=== PATIENT | female | born 2000 | race African-American/Black ===

== ENCOUNTER 2024-05-26 09:56 | Emergency (ER) | payer SELFPAY ==
[2024-05-26] MEDS ORDERED: Ibuprofen 200 MG TAB ONE (10:45)
== END 2024-05-26 11:25 | disposition home or self-care (01) ==
LOC: CSHERS 09:56
DX: J02.0 Streptococcal pharyngitis (principal)
CPT/HCPCS: 87428; 87430; 99283

== ENCOUNTER 2025-01-07 16:14 | Day surgery (SDC) | payer OTHER ==
[2025-01-07 16:28] VITALS: BMI 59.9
[2025-01-07] MEDS ORDERED: hydrALAZINE 20 MG/ML VIAL SLOW IVP PRN (16:36)
[2025-01-07 17:32] LABS: #Basophils Less than 0.03 10x3/uL (0.0-0.2); #Eosinophils 0.03 10x3/uL (0.0-0.5); #Monocytes 0.53 10x3/uL (0.0-1.1); #Neutrophils 3.96 10x3/uL (1.5-8.4); %Basophils 0.4 % (0.0-2.0); %Eosinophils 0.5 % (0.0-6.0); %Lymphocytes 20.0 % (18.0-47.0); %Monocytes 9.3 % (0.0-10.0); %Neutrophils 69.3 % (40.0-75.0); Hematocrit 32.6 % (34.9-44.5); Hemoglobin 10.5 g/dL (12.0-15.5); Mean Corpuscular Hemoglobin 26.1 pg (27.0-33.0); Mean Corpuscular Volume 80.9 fL (81.6-98.3); Platelet Count 332 10x3/uL (150-450); Red Blood Cell (RBC) Count 4.03 10x6/uL (3.90-5.03); White Blood Cell (WBC) Count 5.71 10x3/uL (3.5-10.5)
[2025-01-07 17:32] LABS: Glucose, Urine (Dipstick) Normal (Negative); Leukocyte Negative (Negative); Protein, Urine (Dipstick) 30 mg/dl (Neg-Trace); Specific Gravity, Urine 1.025 (1.005-1.030)
[2025-01-07] MEDS: Lidocaine 2% Viscous Solution 10 ML, Aluminum & Magnesium Hydroxide 30 ML SSW SCH (17:47)
[2025-01-07 17:49] LABS: ALT (SGPT) 12 U/L (Less than 34); AST (SGOT) 16 U/L (11-34); Albumin 3.0 g/dL (3.1-4.5); Alkaline Phosphatase 42 U/L (40-110); Anion Gap 12 mmol/L (10-20); BUN (Urea Nitrogen) 6 mg/dL (7.0-18.7); Bilirubin, Total 0.3 mg/dL (0.3-1.2); Calc. Creatinine Clearance 358 mL/min (70-130); Calcium 8.5 mg/dL (7.8-10.44); Carbon Dioxide 21 mmol/L (22-29); Chloride 107 mmol/L (98-107); Globulin 3.8 g/dL (2.4-3.5); Glucose 83 mg/dL (70-105); Lipase 12 U/L (8-78); Potassium 3.8 mmol/L (3.5-5.1); Sodium 136 mmol/L (136-145)
[2025-01-07 18:05] LABS: Bacteria/HPF 2+ HPF (None Seen); CAUTI Indications for Culture Pregnancy; RBC/HPF 0-3 HPF (0-3)
[2025-01-07 18:06] LABS: Mucous/LPF 3+ LPF (<2+)
[2025-01-07 18:08] LABS: Urine Culture Reflex Yes Yes
== END 2025-01-07 18:30 | disposition home or self-care (01) ==
LOC: CSHLD/OP 16:14
PROVIDERS: ATTEND Family Medicine
DX: O99.891 Other specified diseases and conditions complicating pregnancy (principal); R10.9 Unspecified abdominal pain; O21.2 Late vomiting of pregnancy; Z3A.22 22 weeks gestation of pregnancy
CPT/HCPCS: 36415; 80053; 81001; 83690; 85025; 87086

== ENCOUNTER 2025-04-25 18:09 | Inpatient (IN) | payer OTHER ==
[2025-04-25 18:20] VITALS: BMI 54.2
[2025-04-25 19:05] LABS: Fetal Membranes Rupture No Membranes Rupture (No Rupture)
[2025-04-25 20:29] LABS: #Basophils Less than 0.03 10x3/uL (0.0-0.2); #Eosinophils Less than 0.03 10x3/uL (0.0-0.5); #Monocytes 0.60 10x3/uL (0.0-1.1); #Neutrophils 3.38 10x3/uL (1.5-8.4); %Basophils 0.2 % (0.0-2.0); %Eosinophils 0.4 % (0.0-6.0); %Lymphocytes 20.9 % (18.0-47.0); %Monocytes 11.7 % (0.0-10.0); %Neutrophils 66.0 % (40.0-75.0); Hematocrit 32.1 % (34.9-44.5); Hemoglobin 10.3 g/dL (12.0-15.5); Mean Corpuscular Hemoglobin 25.9 pg (27.0-33.0); Mean Corpuscular Volume 80.9 fL (81.6-98.3); Platelet Count 280 10x3/uL (150-450); Red Blood Cell (RBC) Count 3.97 10x6/uL (3.90-5.03); White Blood Cell (WBC) Count 5.12 10x3/uL (3.5-10.5)
[2025-04-25 20:44] LABS: Protein, Urine Random Quant 26.0 mg/dL (1-14)
[2025-04-25 20:45] LABS: ALT (SGPT) 8 U/L (Less than 34); AST (SGOT) 15 U/L (11-34); Albumin 2.8 g/dL (3.1-4.5); Alkaline Phosphatase 111 U/L (40-110); Anion Gap 12 mmol/L (10-20); BUN (Urea Nitrogen) 9 mg/dL (7.0-18.7); Bilirubin, Total 0.3 mg/dL (0.3-1.2); Calc. Creatinine Clearance 291 mL/min (70-130); Calcium 8.9 mg/dL (7.8-10.44); Carbon Dioxide 20 mmol/L (22-29); Chloride 109 mmol/L (98-107); Globulin 3.9 g/dL (2.4-3.5); Glucose 77 mg/dL (70-105); Potassium 3.9 mmol/L (3.5-5.1); Sodium 137 mmol/L (136-145)
[2025-04-25] MEDS: Acetaminophen 500 MG TAB PO SCH (20:56)
[2025-04-25] MEDS ORDERED: Ondansetron PF 4 MG/2 ML Vial IVP PRN (21:07)
[2025-04-25] MEDS ORDERED: hydrALAZINE 20 MG/ML VIAL SLOW IVP PRN (21:07)
[2025-04-25] MEDS ORDERED: Diphenoxylate HCl/Atropine Tablet PO PRN ×2 (21:07)
[2025-04-25] MEDS ORDERED: Lidocaine 1% (PF) 30 ML VIAL SC PRN (21:07)
[2025-04-25] MEDS ORDERED: Carboprost 250 MCG/ML AMP IM PRN (21:07)
[2025-04-25] MEDS ORDERED: Tranexamic Acid 1,000 MG/10 ML VIAL IVP PRN (21:07)
[2025-04-25] MEDS ORDERED: Oxytocin 30 units/NS 500 ML 500 ML IV SCH ×2 (21:15)
[2025-04-25] MEDS: Penicillin G Potassium 5 MILL.UNITS in Sodium Chloride 0.9% 100 ML IVPB SCH (22:42)
[2025-04-25 22:58] LABS: Hematocrit 31.7 % (34.9-44.5); Hemoglobin 10.4 g/dL (12.0-15.5); Mean Corpuscular Hemoglobin 26.0 pg (27.0-33.0); Mean Corpuscular Volume 79.3 fL (81.6-98.3); Platelet Count 277 10x3/uL (150-450); Red Blood Cell (RBC) Count 4.00 10x6/uL (3.90-5.03); White Blood Cell (WBC) Count 5.80 10x3/uL (3.5-10.5)
[2025-04-25 23:37] LABS: Syphilis Antibody Index 0.11 S/CO (<1.00 Non-Reactive)
[2025-04-25 23:40] LABS: HIV (1/2) Antibody/Antigen Non-Reactive (NonReactive); HIV 1/2 INDEX 0.18 S/CO (<1.00); Hep B Surf Ag - L&D Non-Reactive S/CO (NonReactive)
[2025-04-25] MEDS: Oxytocin 30 units/NS 500 ML 500 ML IV SCH (23:49)
[2025-04-26] MEDS: fentaNYL/Ropivacaine Epidural 100 ML ONE (01:52)
[2025-04-26] MEDS ORDERED: Ondansetron PF 4 MG/2 ML Vial IVP PRN ×2 (01:59→10:52)
[2025-04-26] MEDS ORDERED: diphenhydrAMINE 50 MG/ML VIAL IVP PRN (01:59)
[2025-04-26] MEDS ORDERED: Acetaminophen 325 MG TAB PO PRN (01:59)
[2025-04-26] MEDS ORDERED: Communication Order-Pharmacy FS SCH (02:00)
[2025-04-26] MEDS ORDERED: fentaNYL 2 mcg/Ropivacaine 0.2% Epidural 100 ML CADD EPIDURAL SCH (02:00)
[2025-04-26] MEDS: Penicillin G 2.5 MILL.units 2.5 MILL.UNITS in Premix 1 BAG IVPB SCH (02:45)
[2025-04-26] MEDS ORDERED: Preparation H Ointment 28 GM TUBE PR PRN (10:52)
[2025-04-26] MEDS ORDERED: Bisacodyl 10 MG SUPP PR PRN (10:52)
[2025-04-26] MEDS ORDERED: diphenhydrAMINE 25 MG CAP PO PRN (10:52)
[2025-04-26] MEDS ORDERED: hydrALAZINE 20 MG/ML VIAL SLOW IVP PRN (10:52)
[2025-04-26] MEDS ORDERED: Lanolin Ointment 7 GM TUBE TOP PRN (10:52)
[2025-04-26] MEDS ORDERED: Benzocaine-Menthol 82.5 ML CAN TOP PRN (10:52)
[2025-04-26] MEDS ORDERED: Milk Of Magnesia 30 ML UDCUP PO PRN (10:52)
[2025-04-26] MEDS ORDERED: Oxytocin 30 units/NS 500 ML 500 ML IV SCH (11:00)
[2025-04-26] MEDS: Ibuprofen 800 MG TAB PO PRN (13:01)
[2025-04-26] MEDS: Ferrous Sulfate 325 MG TAB PO SCH (18:21)
[2025-04-26] MEDS: Ibuprofen 800 MG TAB PO SCH (18:21)
[2025-04-27 03:25] LABS: Hematocrit 27.6 % (34.9-44.5); Hemoglobin 8.7 g/dL (12.0-15.5); Mean Corpuscular Hemoglobin 25.5 pg (27.0-33.0); Mean Corpuscular Volume 80.9 fL (81.6-98.3); Platelet Count 260 10x3/uL (150-450); Red Blood Cell (RBC) Count 3.41 10x6/uL (3.90-5.03); White Blood Cell (WBC) Count 6.47 10x3/uL (3.5-10.5)
[2025-04-27] MEDS: Sodium Ferric Gluconate 250 MG in Sodium Chloride 0.9% 250 ML 250 ML IVPB SCH (11:40)
[2025-04-27] MEDS ORDERED: Bupivacaine 0.25% HCL 30 ML VIAL ONE (20:09)
[2025-04-28 12:21] VITALS: BP 132/71; TEMP 98.5
== END 2025-04-28 13:30 | disposition home or self-care (01) | DRG 807 ==
LOC: CSHLD/OP 18:09 → CSHLD 21:12 → CSHPP 04-26 13:15
PROVIDERS: ADMIT Family Medicine; ATTEND Family Medicine
PROC: 10H07YZ Insertion of Other Device into Products of Conception, Via Natural or Artificial Opening (ICD-10-PCS; 2025-04-25)
PROC: 4A1HXCZ Monitoring of Products of Conception, Cardiac Rate, External Approach (ICD-10-PCS; 2025-04-25)
PROC: 10E0XZZ Delivery of Products of Conception, External Approach (ICD-10-PCS; principal; 2025-04-26)
PROC: 0UQGXZZ Repair Vagina, External Approach (ICD-10-PCS; 2025-04-26)
PROC: 3E0234Z Introduction of Serum, Toxoid and Vaccine into Muscle, Percutaneous Approach (ICD-10-PCS; 2025-04-26)
DX: O13.4 Gestational [pregnancy-induced] hypertension without significant proteinuria, complicating childbirth (principal); Z37.0 Single live birth; O42.12 Full-term premature rupture of membranes, onset of labor more than 24 hours following rupture; O99.214 Obesity complicating childbirth; O99.824 Streptococcus B carrier state complicating childbirth; E66.813 Obesity, class 3; O99.02 Anemia complicating childbirth; D50.9 Iron deficiency anemia, unspecified; O36.63X0 Maternal care for excessive fetal growth, third trimester, not applicable or unspecified; O76 Abnormality in fetal heart rate and rhythm complicating labor and delivery; O71.4 Obstetric high vaginal laceration alone; Z3A.38 38 weeks gestation of pregnancy; Z79.899 Other long term (current) drug therapy; Z23 Encounter for immunization
CPT/HCPCS: 36415; 51702; 80053; 82570; 84112; 84156; 85025; 85027; 86780; 86850; 86900; 86901; 87340; 87389; 87480; 87510; 87660; 99285; J0665; J2540; J2590; J2916; J7050; J7120